=== PATIENT | male | born 1980 | race Caucasian/White ===

== ENCOUNTER 2016-11-03 13:08 | Emergency (ER) | payer MEDICAID ==
[~2016-11-03] VITALS: Ht 185.4 cm; Wt 112.5 kg
[2016-11-03 13:26] VITALS: BP 145/64
== END 2016-11-03 15:03 | disposition home or self-care (01) ==
LOC: ED 13:08
DX: F41.9 Anxiety disorder, unspecified (principal); F32.9 Major depressive disorder, single episode, unspecified; F20.9 Schizophrenia, unspecified